=== PATIENT | female | born 1980 | race Two or more races ===

== ENCOUNTER 2019-05-14 18:04 | Emergency (ER) | payer MEDICAID ==
[~2019-05-14] VITALS: Ht 170.2 cm; Wt 100.0 kg
[2019-05-14 20:19] VITALS: BP 132/80
[2019-05-14 20:30] LABS: APPEARANCE,URINE CLOUDY (CLEAR); BILIRUBIN,URINE NEGATIVE (NEGATIVE); GLUCOSE, URINE (UA) NEGATIVE (NEGATIVE); KETONES,URINE TRACE mg/dL (NEGATIVE); LEUKOCYTE ESTERASE ,URINE LARGE (NEGATIVE); NITRATE,URINE POSITIVE (NEGATIVE); OCCULT BLOOD,URINE LARGE (NEGATIVE); PROTEIN,URINE SEE CONFIRM (NEGATIVE)
[2019-05-14] MEDS ORDERED: CEPHALEXIN MONOHYDRATE 500 MG CAPSULE PO ONE (20:30)
[2019-05-14 20:37] LABS: BACTERIA,URINE Rare /HPF (None Seen); RBC,URINE 51-100 /HPF (0-2); SQUAMOUS EPITHELIAL CELL,UR Rare /LPF (None Seen); WBC,URINE 51-100 /HPF (0-5)
[2019-05-14 20:38] LABS: HYALINE CASTS, URINE 0-2 /LPF (None Seen); SULFOSALICYLIC ACID,URINE 1+ (Negative)
== END 2019-05-14 20:49 | disposition home or self-care (01) ==
LOC: EMS 18:08
DX: N39.0 Urinary tract infection, site not specified (principal)
CPT/HCPCS: 87086

== ENCOUNTER 2021-07-20 22:00 | Emergency (ER) | payer MEDICAID, OTHER ==
[~2021-07-20] VITALS: Ht 165.1 cm; Wt 84.0 kg
[2021-07-20] MEDS ORDERED: BACITRACIN 0.9 GM PACKET OINTMENT TP ONE (22:30)
[2021-07-20] MEDS ORDERED: PERTUSS(ACELL),DIPH,TET VAC/PF 0.5 ML SYRINGE IM. ONE (22:30)
[2021-07-20] MEDS ORDERED: SODIUM CHLORIDE 0.9% 250 ML IRRIG SOLUTION BOTTLE IRRIG ONE (22:30)
[2021-07-21 01:41] VITALS: BP 124/68
== END 2021-07-21 01:54 | disposition home or self-care (01) ==
LOC: EMS 22:01
DX: S00.83XA Contusion of other part of head, initial encounter (principal); S40.022A Contusion of left upper arm, initial encounter; Y04.0XXA Assault by unarmed brawl or fight, initial encounter; Y93.89 Activity, other specified; Y92.89 Other specified places as the place of occurrence of the external cause; Y99.0 Civilian activity done for income or pay
CPT/HCPCS: 70450; 70486; 90471; 90715; 99285